=== PATIENT | female | born 1990 | race Caucasian/White ===

== ENCOUNTER 2016-11-15 10:00 | Emergency (ER) | payer MEDICAID, OTHER ==
[2016-11-15 10:01] VITALS: BP 153/79
[2016-11-15] MEDS ORDERED: ACETAMINOPHEN 500 MG TABLET PO ONE (10:52)
[2016-11-15] MEDS ORDERED: NORMAL SALINE 1,000 ML IV ONE (10:52)
[2016-11-15] MEDS ORDERED: PHENAZOPYRIDINE HCL 100 MG TABLET PO ONE ×2 (10:52→14:28)
[2016-11-15 11:22] LABS: Hematocrit 46.9 % (37.0-47.0); Hemoglobin 15.2 gm/dL (12.5-16.0); Mean Cell Volume 86.2 fl (78-100); Mean Corpuscular Hemoglobin 27.9 pg (27-31); Mean Corpuscular Hgb Conc 32.4 g/dl (32-36); Mean Platelet Volume 10.1 fl (6.0-9.5); Neutrophil # 10.9 K/mm3 (1.3-6.0); Neutrophil % 77.2 % (42-75.0); Platelet Count 386 K/mm3 (150-450); Red Blood Count 5.44 M/mm3 (4.2-5.4); White Blood Count 14.2 K/mm3 (4.0-10.5)
[2016-11-15 11:37] LABS: Albumin * 4.3 gm/dl (3.4-5.0); Anion Gap 15.3 mmol/L (6.8-13.8); BUN/Creatinine Ratio 12.8 (9.0-21.6); Bilirubin, Total 0.4 mg/dL (0.0-1.1); Ca. Corrected For Albumin 8.5 mg/dL (8.4-10.2); Calcium * 9.1 mg/dL (7.9-10.9); Carbon Dioxide 24.7 mmol/L (24-32.6); Total Protein 8.4 gm/dL (6.2-8.2)
[2016-11-15 11:44] LABS: Urine Bilirubin 1 mg/dl (NEGATIVE); Urine Blood 50 /ul (NEGATIVE); Urine Ketone Negative (NEGATIVE); Urine Nitrite Negative (NEGATIVE); Urine Protein 30 mg/dL (NEGATIVE); Urine Specific Gravity >=1.030 SP.GR. (1.005-1.010); Urine Urobilinogen Normal (NORMAL)
[2016-11-15] MEDS ORDERED: PHENAZOPYRIDINE HCL 100 MG TABLET ONE ×2 (11:49→14:31)
[2016-11-15 11:54] LABS: Urine Appearance Slightly Cloudy; Urine Bacteria 1+; Urine Color Yellow; Urine RBC 0-5 /hpf (0-5); Urine WBC 0-5 /hpf (0-5)
[2016-11-15 11:55] LABS: Urine Mucus Moderate - 2+
--- NOTE | 2016-11-15 13:49 | ERNOTE ---
Medical Problem HPI - Narrative Date of Service: 11/15/16 - General Chief Complaint: General Assessment Time Seen by Provider: 11/15/16 10:47 Source: patient Exam Limitations: no limitations - Immun/Allergies/Home Medications Allergies/Adverse Reactions: Allergies No Known Allergies Allergy (Verified 11/15/16 10:37) Home Medications: HOME MEDICATIONS Phenazopyridine HCl [Pyridium] 200 mg PO QID #20 tablet 11/15/16 [Last Taken Unknown] Promethazine HCl [Phenergan (Promethazine)] 25 mg PO QID #20 tab 11/15/16 [Last Taken Unknown] - History of Present History Narrative: Diarrhea started 0700 yesterday and has persisted. Vomiting repeatedly started this morning. Also dysuria and voiding in small amounts off and on. Febrile, uncertain what temperature was. Aches all over. Timing: getting worse Severity: moderate Modifying Factors - (Improves): Present: other - nothing Modifying Factors - (Worsens): Present: other - eating or drinking Review of Systems - Review of Systems Constitutional: Present: fever, chills, malaise, decreased activity level EYE: Present: no symptoms reported ENT: Present: no symptoms reported Respiratory: Present: no symptoms reported Cardiology: Present: no symptoms reported Gastrointestinal/Abdominal: Present: See HPI Genitourinary: Present: See HPI Musculoskeletal: Present: muscle pain Skin: Present: no symptoms reported Neurological: Present: no symptoms reported Endocrine: Present: no symptoms reported Hematologic/Lymphatic: Present: no symptoms reported Psych: Present: no symptoms reported All Other Systems: All systems neg except as marked - Patient's Past Medical History Patient History - Medical: No pertinent hx Patient History - Cardiac/Respiratory: No pertinent hx Patient History - Cancer: No Hx of Cancer Patient History - Surgical Procedures: No surgical history - Social History Living Situations: home Physical Exam - Physical Exam General Appearance: Present: wd/wn, alert, no apparent distress Eye Exam: Normal inspection: bilateral, PERRL: bilateral, EOMI: bilateral Ears, Nose, Throat: Present: normal ENT inspection, hearing grossly normal Neck: Present: normal inspection, nontender Respiratory: Present: no respiratory distress, normal breath sounds Cardiovascular/Chest: Present: regular rate, rhythm, no murmur Gastrointestinal/Abdominal: Present: normal bowel sounds, nondistended, soft, no organomegaly, McBurney sign Back Exam: Present: normal inspection, no CVA tenderness, no vertebral tenderness Extremity Exam: Present: normal inspection, non-tender, no edema Neurological Exam: Present: alert, oriented, normal mood/affect Skin Exam: Present: normal color, warm/dry ED Progress - Results and Orders Patient's Lab Results:: I have reviewed the patient's lab results. - Vital Signs Patient's Vital Signs:: I have reviewed the patient's vital signs. Vital Signs: Vital Signs 11/15/16 10:30 Temperature 36.4 C L Pulse Rate 108 H Respiratory 12 Rate Blood Pressure 153/79 O2 Sat by Pulse 100 Oximetry - CT/Ultrasound CT/Ultrasound Narrative: I reviewed the abdominopelvic CT results, they are non acute. Appendix ok. Urine micro ok. - Progress/Reassessment Chief Complaint: General Assessment Departure - Departure Clinical Impression: Viral gastroenteritis, Dysuria Disposition: Home self-care Condition: Good Instructions: Viral Gastroenteritis, Adult, [id number], Dysuria, Clear Liquid Diet, [id number] Additional Instructions: Rest. Clear liquids only till well. Tylenol 650 mg four times daily routinely till well. Prescriptions: Phenazopyridine HCl [Pyridium] 200 mg PO QID #20 tablet Promethazine HCl [Phenergan (Promethazine)] 25 mg PO QID #20 tab
[2016-11-15] MEDS ORDERED: PROMETHAZINE HCL 25 MG TABLET PO ONE (14:28)
[2016-11-15] MEDS ORDERED: PROMETHAZINE HCL 25 MG TABLET ONE (14:30)
== END 2016-11-15 14:12 | disposition home or self-care (01) ==
LOC: ER 10:00
DX: A08.4 Viral intestinal infection, unspecified (principal); R30.0 Dysuria